=== PATIENT | male | born 1955 | race Caucasian/White ===

== ENCOUNTER → 2021-05-10 | Day surgery (SDC) | payer MEDICARE, OTHER ==
[~2021-05-10] VITALS: Ht 180.3 cm; Wt 93.2 kg
[~2021-05-10] MED LIST: XARELTO15 MG PO; XARELTO20 MG PO
[2021-05-10 10:05] LABS: HCT 47.8 % (42.0-52.0); HGB 16.6 g/dl (13.2-18.0); MCH 34.2 pg (25.0-31.0); MCHC 34.7 g/dL (32.0-36.0); MCV 98.4 fL (78.0-100.0); MPV 10.3 fL (6.0-9.5); RBC 4.86 M/uL (4.70-6.00); RDW 12.3 % (11.5-14.0); WBC 4.5 K/uL (4.0-10.5)
[2021-05-10 10:51] LABS: ALBUMIN 4.1 g/dL (3.4-5.0); BILIRUBIN - TOTAL 0.8 mg/dL (0.2-1.0); BUN/CREAT RATIO (CALC) 14.8 RATIO; CREATININE 1.15 mg/dL (0.67-1.17); GLOBULIN (CALCULATION) 3.7 g/dL; TOTAL PROTEIN 7.8 g/dL (6.4-8.2)
== END | disposition home or self-care (01) ==
LOC: FAS 09:33
PROVIDERS: Surgery
DX: Z12.11 Encounter for screening for malignant neoplasm of colon (principal); D12.6 Benign neoplasm of colon, unspecified; K63.5 Polyp of colon; Z86.010 Personal history of colon polyps; Z87.891 Personal history of nicotine dependence; Z80.0 Family history of malignant neoplasm of digestive organs
CPT/HCPCS: 36415; 80053; J0690; J2704; J7120